=== PATIENT | male | born 1955 | race African-American/Black ===

== ENCOUNTER 2017-03-29 02:00 | Inpatient (IN) | payer OTHER ==
[~2017-03-29] VITALS: Ht 175.3 cm; Wt 86.2 kg
--- NOTE | ~2017-03-29 | PN ---
Unit #: [id number] #: [id number] Patient: WANDY DODGE [id number] [facility] [address] [place] [address] [id number] MR#: [id number] NAME: WANDY DODGE. ROOM: [facility] Age: 62 Sex: M Admission Date: 03/29/2017 : 1955 Attending Physician: Martin Douglas M.D. Admitting Physician: Martin Douglas M.D. Primary Care Physician: Primary Care Physician Maria Luisa CAMARGO PROGRESS NOTES DATE 03/31/2017 DISCUSSION Mr. Morocho is a 62-year-old male. Patient interviewed. Chart reviewed. Obtained information from nursing staff. Patient is currently having withdrawal symptoms from alcohol, withdrawn, anxious, nervous, sad, dysphoric. Patient seclusive, isolative, flat affect. Patient reported able to rest better. Patient is currently on detox protocol. Complete review of system unremarkable. MENTAL STATUS EXAMINATION General appearance, patient dressed casually. Attention span, concentration fair. Oriented in time, place and person. Mood and affect sad, dysphoric. Speech regular rate. Thought process goal-directed. Patient denied any thoughts of harming self or others or any psychotic symptoms but still sad, depressed, hopeless, withdrawn. Recent and remote memory poor. Insight and judgement poor. DIAGNOSES 1. Alcohol use disorder, severe. 2. Mood disorder NOS. ASSESSMENT/PLAN Advised to continue with current medication and therapeutic protocol. If needed, consider further adjustment of medication. Dictated by... John Perkins/[place] TD: 03/31/2017 17:35 JOB #: [id number] Unit #: [id number] #: [id number] Patient: WANDY DODGE PEADUY PROGRESS NOTES Page 1 of 1 X Martin Douglas MD PROGRESS NOTE
--- NOTE | ~2017-03-29 | PA ---
Unit #: [id number] #: [id number] Patient: WANDY DODGE [id number] [facility] [address] [place] [address] [id number] I MR#: [id number] NAME: WANDY DODGE. ROOM: [facility] Age: 62 Sex: M Admission Date: 03/29/2017 : 1955 Date of Assessment: Attending Physician: Martin Douglas M.D. Admitting Physician: Martin Douglas M.D. Primary Care Physician: Primary Care Physician No PSYCHIATRIC ASSESSMENT INFORMANTS The patient reliability, fair informant and chart reliability, good. CHIEF COMPLAINT Alcohol abuse and withdrawal. HISTORY OF PRESENT ILLNESS Mr. Morocho is a 62-year-old male, presented due to his drinking a large amount of alcohol and fighting with the family. The patient reports that his sister threw him out of the mother's home who passed recently. The patient reports that no one cares about him. The patient reports currently he has a history of suicidal ideation, denied any plan. The patient reported homicidal ideation, but without any specific person. The patient reported drinking half a gallon of alcohol since age 18, history of alcohol abuse. The patient reported history of blackouts. No history of any HIV or hepatitis. History of withdrawal symptoms. No history of any IV drug use. History of diarrhea, restlessness, poor appetite, and headache. Needing inpatient admission at this time for psychiatric stabilization. PAST PSYCHIATRIC HISTORY Remarkable for history of previous treatment at [facility] in 2017. FAMILY HISTORY AND SOCIAL HISTORY The patient has poor support system, recently kicked out from his house. Family psychiatric illness is remarkable for history of substance abuse in both sides of the family. No known history of any abuse. MEDICAL HISTORY Remarkable for history of TIA; coronary artery disease, history of stent placed; and hypertension. Musculoskeletal; muscle strength and tone, no atrophy or abnormal movement. Gait normal. MEDICATION HISTORY None. ALLERGIES To penicillin. SUBSTANCE ABUSE HISTORY Please see above. Unit #: [id number] #: [id number] Patient: WANDY DODGE REVIEW OF SYSTEMS HEENT: Eyes, clear. Ears, nose, mouth, and throat; clear. CARDIOVASCULAR: Unremarkable. RESPIRATORY: Unremarkable. GI: Unremarkable. : Unremarkable. SKIN: Unremarkable. LYMPH NODE: Unremarkable. NEUROLOGIC: Unremarkable. ENDOCRINE: Unremarkable. HEMATOLOGIC: Unremarkable. ALLERGIC/IMMUNOLOGIC: Unremarkable. MUSCULOSKELETAL: Muscle strength and tone, no atrophy or abnormal movement. Gait normal. MENTAL STATUS EXAMINATION CONSTITUTIONAL: Measurement of vital signs; temperature 97.9, heart rate 87, respiratory rate 20, and blood pressure 132/87. Height 5 feet 9 inches and weight 190 pounds. GENERAL APPEARANCE: The patient dressed casually. The patient did not show any facial deformity. MUSCULOSKELETAL: Please see above. PSYCHIATRIC EXAMINATION Description of speech; regular rate, normal volume, normal articulation, and coherent. Description of thought process, goal directed. Description of association, intact. Description of abnormal psychotic thinking; the patient denied any hallucination or delusions, but depression, suicidal ideation, and substance abuse. Description of the patient's judgment: Concerning everyday activity, poor. Social situation, poor. Concerning psychiatric condition, poor. Complete mental status examination; oriented in time, place, and person. Recent and remote memory, fair. Attention span and concentration, fair. Language, able to name object and repeat phrases. Fund of knowledge, aware of current event and passive vocabulary intact. Mood and affect, sad and dysphoric. Insight and judgment, fair to poor. ASSETS AND LIABILITIES Assets, the patient is articulate and able to take care of his ADL. Liability, history of depression and substance abuse. ADMITTING DIAGNOSES Psychiatric: Major depressive disorder, recurrent, severe, F33.2 and alcohol use disorder, severe, F10.20. Secondary diagnosis: Deferred. Medical diagnoses: History of coronary artery disease, angioplasty with stents; cerebrovascular accident; chronic obstructive pulmonary disease; and allergy to penicillin. Stressors: Psychosocial stressor. PSYCHIATRIC PLAN AND TREATMENT GOAL AND DISCHARGE PLAN 1. Advised to admit the patient on the inpatient unit. Provide safe, supportive, and structured environment. 2. Ordered labs; CBC, CMP, UA, and UDS. Unit #: [id number] #: [id number] Patient: ECHOWANDY Ras 3. The patient started on detox protocol and detox monitoring. The patient to attend group therapy, individual therapy, and chemical dependency group. Treatment goal to attain euthymic mood, gain insight into his problem, and learn coping skills. DISCHARGE PLAN Plan to stabilize the patient and consider followup in outpatient program. ESTIMATED LENGTH OF STAY 3 to 5 days. Dictated by... Martin Douglas M.D. [facility]/modl TD: 03/30/2017 18:36 JOB #: [id number] PSYCHIATRIC ASSESSMENT Page 1 of 1 X Martin Douglas MD PSYCHIATRIC ASSESSMENT
--- NOTE | ~2017-03-29 | DS ---
Unit #: [id number] #: [id number] Patient: WANDY DODGE [id number] [facility] [address] [place] [address] [id number] MR#: [id number] NAME: WANDY DODGE. ROOM: [facility] Age: 62 Sex: M Admission Date: 03/29/2017 : 1955 Discharge Date: 04/02/2017 Attending Physician: Martin Douglas M.D. Primary Care Physician: Primary Care Physician No DISCHARGE SUMMARY REASON FOR ADMISSION Alcohol abuse and withdrawal. DIAGNOSTIC STUDIES LABORATORY DATA: Remarkable for glucose 444, AST 65, ALT 460. HOSPITAL COURSE The patient was admitted to inpatient unit on March 29 and discharged on 04/02/2017. The patient was treated with group therapy, individual therapy, medication management. The patient was responsive to treatment, showed improvement. Subsequently, the patient was discharged with a plan to follow up in outpatient program. The patient was also followed for his increased blood sugar by a medical doctor. DISCHARGE MEDICATIONS 1. Celexa 40 mg daily for depression. 2. Trazodone 100 mg at bedtime for sleep. 3. The patient is on insulin. 4. To continue with Metoprolol, vitamin B, Levemir, Accu-Chek, and NovoLog. DISCHARGE DIAGNOSES PSYCHIATRIC: Major depressive disorder, recurrent, severe, F33.2 Alcohol use disorder, severe, F10.20. SECONDARY: Deferred. MEDICAL: History of coronary artery disease, angioplasty with stent, cerebrovascular accident, chronic obstructive pulmonary disease, diabetes mellitus insulin dependent. STRESSORS: Psychosocial stressor. FOLLOWUP CARE The patient to follow up in outpatient clinic as per licensed clinical social worker. CONDITION ON DISCHARGE The patient pleasant, cooperative. Denied any psychotic symptom or any suicidal ideation. PROGNOSIS Guarded. DIET AND ACTIVITY As tolerated. Unit #: [id number] #: [id number] Patient: WANDY DODGE Dictated by... John Perkins/major TD: 04/05/2017 07:37 JOB #: [id number] DISCHARGE SUMMARY Page 1 of 1 X Martin Douglas MD X DISCHARGE SUMMARY
--- NOTE | ~2017-03-29 | PN ---
Unit #: [id number] #: [id number] Patient: WANDY DODGE [id number] [facility] [address] [place] [address] [id number] MR#: [id number] NAME: WANDY DODGE. ROOM: [facility] Age: 62 Sex: M Admission Date: 03/29/2017 : 1955 Attending Physician: Martin Douglas M.D. Admitting Physician: Martin Douglas M.D. Primary Care Physician: Primary Care Physician Maria Luisa [place] NOTES DATE OF SERVICE 03/30/2017 DISCUSSION Mr. Morocho is a 62-year-old male seen on 03/30/2017. Patient interviewed, chart reviewed. Obtained information from nursing staff. Patient was compliant and cooperative. Mood, sad, dysphoric, flat affect, guarded, anxious, nervous. The patient reported having withdrawal symptoms from alcohol. The patient's vital signs 97.9, 85, 20, 169/86. Complete review of systems unremarkable. MENTAL STATUS EXAMINATION General appearance, patient dressed casually. Attention span and concentration fair. Oriented to place and person. Mood and affect sad, dysphoric. Speech monotone. Thought process concrete. Patient denied any thoughts of harming self or others but still hopeless, worthless, sad depressed. Insight and judgement fair to poor. DIAGNOSES 1. Alcohol use disorder severe. 2. Mood disorder NOS. ASSESSMENT/PLAN Advise to continue with current medication and therapeutic protocol. If needed consider further adjustment of medication. Dictated by... John Perkins/diomedes TD: 03/30/2017 22:29 JOB #: [id number] Unit #: [id number] #: [id number] Patient: WANDY DODGE PEADUY PROGRESS NOTES Page 1 of 1 X Martin Douglas MD PROGRESS NOTE
--- NOTE | ~2017-03-29 | HP ---
Unit #: [id number] #: [id number] Patient: WANDY DODGE [id number] [place] [address] [id number] MR#: [id number] NAME: WANDY DODGE. ROOM: [facility] Age: 62 Sex: M Admission Date: 03/29/2017 : 1955 Attending Physician: Martin Douglas M.D. Admitting Physician: Martin Douglas M.D. Primary Care Physician: Primary Care Physician No HISTORY AND PHYSICAL HISTORY OF PRESENT ILLNESS Wandy is a 62 year old admitted to [facility] because of his abuse of alcohol. PAST MEDICAL HISTORY 1. Long history of alcohol abuse. 2. History of DTs. 3. Coronary artery disease. a. Angioplasty with stents. 4. CVA. 5. COPD. PAST SURGICAL HISTORY 1. As above. 2. Parathyroidectomy. ALLERGIES Penicillin. SOCIAL HISTORY He smokes two packs per day. Drinks a half-gallon of vodka on a daily basis. Denies illicit drug use. FAMILY HISTORY Medically noncontributory. REVIEW OF SYSTEMS CONSTITUTIONAL: No fever or chills. HEENT: Denies any sore throat, ear pain or runny nose. CARDIOVASCULAR: Denies chest pain, irregular heart rhythm or palpitations. CHEST: Denies shortness of breath or cough. No hemoptysis. GASTROINTESTINAL: Denies nausea, vomiting, diarrhea or chronic constipation. ENDOCRINE: Denies history of increased thirst or urination. No recent significant weight loss or gain. GENITOURINARY: Denies dysuria, frequency, or hematuria. SKIN: Denies any rashes. HEMATOLOGIC: Denies history of increased bleeding or bruising. MUSCULOSKELETAL: Denies any hot, swollen joints. No generalized muscle pain. NEUROLOGIC: Denies problems with vision or speech. No frequent, severe headaches. No numbness, tingling or weakness in any extremities. Denies loss of bladder or bowel control. Unit #: [id number] #: [id number] Patient: WANDY DODGE CURRENT MEDICATIONS 1. Detox protocol 2. Levemir 10 units q.h.s. 3. Lopressor 50 mg b.i.d. 4. NovoLog per sliding scale 5. Ibuprofen 800 mg q 8 hours p.r.n. PHYSICAL EXAMINATION GENERAL: Alert, well-nourished, in no apparent distress. VITAL SIGNS: Blood pressure 170/86, heart rate 84, respirations 16, temperature 98.6. WEIGHT: 190. HEIGHT: 5 foot 9 inches. SKIN: Warm and dry without rash or lesion. HEENT: Normocephalic. TMs not viewed. Oral and nasal passages clear. Conjunctivae clear. Pupils equal, round and reactive to light and accommodation. Extraocular movements intact. NECK: Supple without lymphadenopathy or thyromegaly. HEART: Regular rate and rhythm without murmur. LUNGS: Clear. ABDOMEN: Soft, nontender. : Not done. EXTREMITIES: No evidence of cyanosis, clubbing or edema. Moves all extremities without focal deficit. NEUROLOGICAL: Grossly within normal limits. Cranial Nerves: II: Visual ly are intact. III, IV AND : Extraocular movements are intact. Pupils are equal, round and reactive to light. V: Facial sensation is grossly normal. VII: Facial movements and expression are normal. VIII: Auditory acuity grossly intact. IX, X: Uvula is midline. Phonation is normal. XI: Patient shrugs shoulders and turns head normally. XII: Tongue protrudes in the midline. Sensory and Motor Function: Sensory and motor sensation is grossly normal. Motor: moves all extremities well. Coordination: Gait is normal. Deep Tendon Reflexes: Intact. IMPRESSION Psychiatric admission. RECOMMENDATIONS PSYCHIATRIC: Per psychiatrist. MEDICAL: I see no contraindications to participating in facility's activities. MEDICAL PROGNOSIS Good. MEDICAL CONDITION Stable. Dictated by... Maria C Alanis P.A.-C. for Unit #: [id number] #: [id number] Patient: WANDY DODGE M.D. JJA/diomedes TD: 03/30/2017 01:18 JOB #: [id number] HISTORY AND PHYSICAL Page 1 of 1 X Maria C Alanis HISTORY AND PHYSICAL
--- NOTE | ~2017-03-29 | PN ---
Unit #: [id number] #: [id number] Patient: WANDY DODGE [id number] [facility] [address] [place] [address] [id number] MR#: [id number] NAME: WANDY DODGE. ROOM: [facility] Age: 62 Sex: M Admission Date: 03/29/2017 : 1955 Attending Physician: Martin Douglas M.D. Admitting Physician: Martin Douglas M.D. Primary Care Physician: Primary Care Physician Maria Luisa CAMARGO PROGRESS NOTES DATE OF SERVICE 04/01/2017 DISCUSSION Mr. Morocho is a 62-year-old male. Patient interviewed, chart reviewed. Obtained information from nursing staff. Patient pleasant and cooperative reports making progress. Patient reports feeling better. Requested for eye drops. Patient had recent eye surgery. Patient's vital signs stable 197.9, 62, 143/78. Complete review of systems unremarkable. MENTAL STATUS EXAMINATION General appearance, patient dressed casually. Attention span and concentration fair. Oriented to time, place and person. Mood and affect labile. Speech monotone. Thought process concrete. Patient denied any thoughts of harming self or others or any psychotic symptom. Recent and remote memory poor. Insight and judgement poor. DIAGNOSES 1. Alcohol use disorder severe. 2. Mood disorder NOS. ASSESSMENT/PLAN Advise to continue with current medication and therapeutic protocol. If needed consider further adjustment of medication with a plan to consider discharge next week and followup in IOP level of care. Dictated by... John Perkins/diomedes TD: 04/02/2017 04:30 JOB #: [id number] Unit #: [id number] #: [id number] Patient: WANDY DODGE MARY JO PROGRESS NOTES Page 1 of 1 X Martin Douglas MD PROGRESS NOTE
[2017-03-30 09:41] LABS: URINE APPEARANCE CLEAR; URINE BILIRUBIN NEG (NEG); URINE BLOOD NEG (NEG); URINE COLOR YELLOW; URINE GLUCOSE >1000 MG/DL (NEG); URINE KETONE NEG (NEG); URINE LEUKOCYTE ESTERASE NEG (NEG); URINE NITRATE NEG (NEG); URINE PROTEIN NEG (NEG); URINE SPECIFIC GRAVITY 1.011 (1.003-1.035); URINE UROBILINOGEN 0.2 MG/DL (NEG)
[2017-03-30 10:26] LABS: AMPHETAMINE NEG (NEG); BARBITURATES NEG (NEG); BENZODIAZEPINES NEG (NEG); COCAINE NEG (NEG); MARIJUANA NEG (NEG); OPIATES NEG (NEG); TRICYCLIC ANTIDEPRESSANTS NEG (NEG); U METHADONE NEG (NEG)
[2017-03-30 12:44] LABS: ALBUMIN SERUM 3.5 g/dL (3.5-5.0); BILIRUBIN,TOTAL 0.8 mg/dL (0.2-2.0); BUN/CREATININE RATIO 13.33; CALCIUM SERUM 10.4 mg/dL (8.4-10.2); CREATININE SERUM 1.2 mg/dL (0.6-1.4); GLOM FILT RATE Estimated 75.7 mL/min (>60); POTASSIUM 4.8 mmol/L (3.5-5.1); PROTEIN TOTAL SERUM 6.8 g/dL (6.0-8.3)
[2017-03-30 12:45] LABS: BASOPHIL% 0.7 % (0-2.5); EOSINOPHIL# 0.1 X10e3 (0-0.7); EOSINOPHIL% 1.5 % (0.0-7.0); HEMATOCRIT 36.7 % (38.0-50.0); HEMOGLOBIN 12.3 gm/dL (13.0-16.0); LYMPHOCYTE# 0.9 X10e3 (1.0-3.5); LYMPHOCYTE% 19.7 % (17.0-45.0); MEAN CORPUSCULAR HEMOGLOBIN 35.5 PG (28-34); MEAN CORPUSCULAR HGB CONC 33.5 g/dL (30-36); MEAN PLATELET VOLUME 11.6 FL (6.5-11.5); MONOCYTE# 0.3 X10e3 (0-1.0); MONOCYTE% 6.9 % (3.0-12.0); NEUTROPHIL# 3.4 X10e3 (1.5-7.1); NEUTROPHIL% 71.2 % (40-75); PLATELET COUNT 129 X10e3 (140-420); RED BLOOD COUNT 3.47 X10e (3.90-5.60); RED CELL DISTRIBUTION WIDTH 15.2 % (11.0-15.5); WHITE BLOOD COUNT 4.8 X10e3 (4.0-10.5)
[2017-03-30 12:46] LABS: DIFF IND YES
[2017-03-30 14:01] LABS: ANISOCYTOSIS SL; PLATELET ESTIMATE DECREASED (NORMAL)
== END 2017-04-02 14:00 | DRG 885 ==
LOC: P1E 11:03
PROVIDERS: Psychiatry & Neurology Psychiatry
PROC: HZ2ZZZZ Detoxification Services for Substance Abuse Treatment (ICD-10-PCS; principal; 2017-03-29)
DX: F33.2 Major depressive disorder, recurrent severe without psychotic features (principal); F39 Unspecified mood [affective] disorder; J44.9 Chronic obstructive pulmonary disease, unspecified; F10.20 Alcohol dependence, uncomplicated; I25.10 Atherosclerotic heart disease of native coronary artery without angina pectoris; Z95.5 Presence of coronary angioplasty implant and graft; Z86.73 Personal history of transient ischemic attack (TIA), and cerebral infarction without residual deficits; Z88.0 Allergy status to penicillin; Z81.3 Family history of other psychoactive substance abuse and dependence; F17.200 Nicotine dependence, unspecified, uncomplicated
CPT/HCPCS: 80053; 80307; 81003; 82947; 85025; 86592